=== PATIENT | female | born 1990 | race Caucasian/White ===

== ENCOUNTER 2021-07-22 02:58 | Outpatient (CLI) | payer SELFPAY ==
[2021-07-22 10:48] LABS: Abs Immature Grans 0.05 10^3/uL (0.0-0.06); Absolute Basophil Count 0.09 10^3/uL (0.0-0.2); Absolute Eosinophil Count 0.21 10^3/uL (0.0-0.7); Absolute Lymphocyte Count 3.59 10^3/uL (1.2-3.4); Absolute Monocyte Count 0.81 10^3/uL (0.1-0.8); Absolute Neutrophil Count 7.51 10^3/uL (1.2-6.7); Basophils % 0.7; Eosinophils % 1.7; HCT 41.4 % (36.0-46.0); HGB 13.9 g/dL (11.2-15.7); Immature Grans % 0.4; Lymphocytes % 29.3; MCH 29.2 pg (27.0-33.0); MCHC 33.6 % (32.0-36.0); MPV 10.3 fL (8.0-11.0); Monocytes % 6.6; Neutrophils % 61.3; Nucleated RBC 0 %; Platelet Count 288 10^3/uL (130-400); RBC 4.76 10^6/uL (3.93-5.22); RDW 12.6 % (11.7-14.6); RDW-SD 40.2 fL; WBC 12.25 10^3/uL (4.4-10.8)
[2021-07-22 12:09] LABS: ALT 17 U/L (14-59); AST 9 U/L (15-37); Albumin 4.1 g/dL (3.4-5.0); Alkaline Phosphatase 74 U/L (46-116); Amylase 24 U/L (25-115); BUN 10 mg/dL (7-18); Bilirubin, Total 0.5 mg/dL (0.2-1.0); CREATININE 0.7 mg/dL (0.55-1.02); Calcium 9.2 mg/dL (8.5-10.1); Chloride 104 mmol/L (98-107); Glucose 97 mg/dL (74-106); Lipase 71 U/L (73-393); Potassium 3.8 mmol/L (3.5-5.1); Sodium 140 mmol/L (136-145); Total Protein 7.1 g/dL (6.4-8.2)
== END 2021-07-22 02:59 | disposition home or self-care (01) ==
LOC: LBO 02:58
PROVIDERS: Visit Provider Family Medicine
DX: R10.11 Right upper quadrant pain (principal); R19.4 Change in bowel habit
CPT/HCPCS: 36415; 80053; 83690; 82150; 85025

== ENCOUNTER 2021-07-27 07:53 | Outpatient (REF) | payer SELFPAY ==
[2021-07-29 16:33] LABS: Campylobacter PCR Negative (Negative); Salmonella PCR Negative (Negative); Shiga Toxin PCR Negative (Negative); Shigella/Enteroinvasive Ecoli Negative (Negative)
[2021-07-30 21:36] LABS: Calprotectin <15.6 mcg/g
== END 2021-07-27 07:54 | disposition home or self-care (01) ==
LOC: NCHCN 07:53
PROVIDERS: Family Medicine; Visit Provider Nurse Practitioner Adult Health
DX: R19.4 Change in bowel habit (principal); R10.11 Right upper quadrant pain; R19.7 Diarrhea, unspecified
CPT/HCPCS: 87505; 83630; 83993; 87177